=== PATIENT | female | born 1985 | race Caucasian/White ===

== ENCOUNTER 2022-02-18 22:57 | Emergency (ER) | payer MEDICAID, SELFPAY ==
[2022-02-18 23:07] VITALS: BP 115/72; PULSE 83; RESP 16; TEMP 36.6; O2SAT 95; BMI 25.6
--- NOTE | 2022-02-18 23:27 | ED.GENADULT ---
HPI - General Adult General Chief complaint: Bug Bite Stated complaint: Right Hand swollen after an insect sting Time Seen by Provider: 02/18/22 23:16 History of Present Illness HPI narrative: This 37-year-old female comes in reporting an insect bite to her right hand that occurred an hour or 2 prior to arrival. She thinks that she was bit 3 times in her right hand but does not know exactly where these bites occurred. She does think that a bite happened by an insect of some sort in the distal portion of her right ring finger. She took 100 mg of Benadryl on a 1000 mg of Tylenol prior to arrival. She comes in here because she continues to have some pain. She does not report any fevers. Related Data Home Medications Medication Instructions Recorded Confirmed lamotrigine 100 mg tablet 100 mg PO BID 02/18/22 02/18/22 prazosin 2 mg capsule 2 mg PO HS 02/18/22 02/18/22 prazosin 5 mg capsule 5 mg PO HS 02/18/22 02/18/22 quetiapine 300 mg tablet,extended 300 mg PO DAILY 02/18/22 02/18/22 release 24 hr Allergies Allergy/AdvReac Type Severity Reaction Status Date / Time ketorolac [From Toradol] Allergy Intermediate Hives Verified 02/18/22 23:06 Review of Systems Status of ROS: Reports: 10 or more systems reviewed and unremarkable except as noted in History and below Narrative: Constitutional: No fevers, no weight gain or loss. Eyes: No discharge. No vision changes. HENT: No congestion, no sore throat, no ear pain. Cardiovascular: No chest pain, no palpitations. Respiratory: No shortness of breath, no wheezes, no cough. Gastrointestinal: No abdominal pain, no vomiting, no diarrhea. Genitourinary: No dysuria, no hematuria. Musculoskeletal: Normal range of motion. Skin: No rashes, no pruritis. Insect bites on the right hand as described above. Neurological: No dizziness, weakness, sensory change, speech change. Endo/Heme/Allergies: No bruising or bleeding. No polydipsia. Pysch: no suicidality, no anxiety, no insomnia. All other systems reviewed and are negative. PFSH PFSH Social History Smoking Status: Current every day smoker Do you use any of these nicotine containing products: None Second hand tobacco smoke exposure: No How often do you have a drink containing alcohol: never How often do you have six or more drinks on one occasion: Never AUDIT-C Alcohol total score: 0 Non-prescribed substance use: denies use service: No Exam Narrative: Exam Narrative: Constitutional: Well-developed, well-nourished, no acute distress. HEENT: Normocephalic, atraumatic. Neck: Normal range of motion. Nontender. Supple. Heart: Intact distal pulses. Lungs: No chest discomfort. No wheezes, rhonchi, or rales. Abdomen: Nontender. Back: Normal range of motion. Extremities: Normal range of motion. No injury. The right hand appears normal without any sign of reaction to an insect bite. There is no compromise of the skin and no erythema. Skin: Intact. No rash. Warm. No erythema or pallor. Neurologic: No altered sensation. No weakness. Alert and oriented. Psychiatric: No suicidality. No anxiety or depression. No insomnia. Nursing notes and vitals signs are reviewed. Const: Vital Signs, click to edit/add: Vital Signs - 24 hr 02/18/22 23:07 Temperature 97.8 F Pulse Rate [Pulse Oximeter] 83 Respiratory Rate 16 Blood Pressure [Le ft Upper Arm] 115/72 Pulse Oximetry 95 Oxygen Delivery Me thod Room Air Course Vital Signs Vital signs: Initial Vital Signs Temperature 97.8 F 02/18/22 23:07 Temperature Source Temporal Artery Scan 02/18/22 23:07 Pulse Rate 83 02/18/22 23:07 Pulse Rhythm 02/18/22 23:07 Respiratory Rate 16 02/18/22 23:07 Blood Pressure 115/72 02/18/22 23:07 Blood Pressure Mean 86 02/18/22 23:07 Blood Pressure Position Sitting 02/18/22 23:07 Pulse Oximetry 95 02/18/22 23:07 Oxygen Delivery Method 02/18/22 23:07 Vital Signs Temperature 97.8 F 02/18/22 23:07 Pulse Rate 83 02/18/22 23:07 Respiratory Rate 16 02/18/22 23:07 Blood Pressure 115/72 02/18/22 23:07 Pulse Oximetry 95 02/18/22 23:07 Oxygen Delivery Method 02/18/22 23:07 Temperature 97.8 F 02/18/22 23:07 Pulse Rate 83 08/03/22 23:07 Respiratory Rate 16 02/18/22 23:07 Blood Pressure 115/72 02/18/22 23:07 Pulse Oximetry 95 02/18/22 23:07 Oxygen Delivery Method 02/18/22 23:07 Medical Decision Making MDM Narrative Medical decision making narrative: This patient comes in because of insect bite to the right hand. Her exam is completely normal. She is not showing any sign of infection or anaphylaxis. I gave reassurance is to her in this regard. She can continue to use [id number]-haygtcn medicines as needed and directed. I advised her regarding signs or symptoms that would indicate a need for return and re-evaluation. She did receive an oral dose of dexamethasone 10 mg. Discharge Plan Discharge Clinical Impression: Insect bite Patient Disposition: Home, Self-Care Condition: Stable Additional Instructions: Use [id number]-[id number] medicines as needed and directed. Follow up with MD or return if worsening symptoms occur. Prescriptions: No Action prazosin 5 mg capsule 5 mg PO HS Label Comments: TAKE ONE CAPSULE BY MOUTH AT BEDTIME lamotrigine 100 mg tablet 100 mg PO BID Label Comments: TAKE ONE TABLET BY MOUTH TWICE A DAY prazosin 2 mg capsule 2 mg PO HS Label Comments: TAKE ONE CAPSULE BY MOUTH AT BEDTIME quetiapine 300 mg tablet extended release 24 hr 300 mg PO DAILY Label Comments: TAKE ONE TABLET BY MOUTH AT BEDTIME Stand Alone Forms: Gamador Info Instructions
[2022-02-18] MEDS: dexAMETHasone 4 MG/ML VIAL 10 MG IV (23:33)
== END 2022-02-18 23:40 | disposition home or self-care (01) ==
LOC: ED 23:35
PROVIDERS: Emergency Provider Emergency Medicine Emergency Medical Services
DX: S60.561A Insect bite (nonvenomous) of right hand, initial encounter (principal)
CPT/HCPCS: 99282; 99283; J1100

== ENCOUNTER 2022-04-08 09:38 | Outpatient (CLI) | payer MEDICAID, SELFPAY ==
[2022-04-08 13:30] LABS: Chloride* 105 mmol/L (96-114)
[2022-04-08 13:31] LABS: Albumin* 4.9 g/dL (3.3-5.0); Potassium* 4.1 mmol/L (3.6-5.1)
[2022-04-08 13:33] LABS: Carbon Dioxide* 23 mmol/L (20-32); Cholesterol* 212 mg/dL (90-199); Creatinine* 0.7 mg/dL (0.5-1.5); Estimated Glomerular Filt Rate 115 ml/min; Total Protein* 7.7 g/dL (6.0-8.3)
[2022-04-08 13:34] LABS: Alanine Aminotransferase* 19 U/L (4-35); Alkaline Phosphatase* 92 U/L (40-150); Aspartate Amino Transferase* 23 U/L (12-35); Bilirubin Total* 0.6 mg/dL (0.1-1.5); Blood Urea Nitrogen* 12 mg/dL (5-24); Calcium* 9.8 mg/dL (8.4-10.6); Glucose* 100 mg/dL (60-115); Triglycerides* 154 mg/dL (40-149)
[2022-04-08 13:35] LABS: HDL Cholesterol* 36 mg/dL (>=50); LDL Cholesterol Calculated 145 mg/dL (<100)
[2022-04-08 13:53] LABS: Sodium* 139 mmol/L (135-149)
[2022-04-08 14:39] LABS: Vitamin D 25 Hydroxy* 24 ng/mL (30-80)
== END 2022-04-08 09:39 | disposition home or self-care (01) ==
PROVIDERS: Visit Provider Nurse Practitioner Family
DX: Z79.899 Other long term (current) drug therapy (principal)
CPT/HCPCS: 80053; 80061; 82306; 84443

== ENCOUNTER 2023-04-07 09:21 | Outpatient (CLI) | payer MEDICAID, SELFPAY | END 2023-04-07 09:22 | disposition home or self-care (01) | LOC: NFLDREF 04-09 11:52 | PROVIDERS: Visit Provider Nurse Practitioner Family | DX: E78.5 Hyperlipidemia, unspecified (principal); R79.89 Other specified abnormal findings of blood chemistry; F31.9 Bipolar disorder, unspecified; F41.9 Anxiety disorder, unspecified; F51.5 Nightmare disorder; F60.3 Borderline personality disorder; Z79.899 Other long term (current) drug therapy | CPT/HCPCS: 80053; 80061; 82306; 84443 ==

== ENCOUNTER 2023-07-26 09:26 | Outpatient (CLI) | payer MEDICAID, SELFPAY | END 2023-07-26 09:27 | disposition home or self-care (01) | LOC: FBOREF 09:27 | PROVIDERS: Visit Provider Family Medicine | DX: E55.9 Vitamin D deficiency, unspecified (principal); Z79.899 Other long term (current) drug therapy | CPT/HCPCS: 82306 ==

== ENCOUNTER 2024-09-06 22:33 | Emergency (ER) | payer OTHER, SELFPAY ==
--- OUTSIDE RECORDS SUMMARY | 2024-09-06 22:35 | XMS_ITS | Clinical Summary ---
Author Organization [facility] Address [address] [place] [id number] Care Team Providers Care Fighting Vehicle Systems Maintainer Name Role Phone Pcp, No Primary Care Provider Unavailabl e Allergies Active Allergy Reactions Criticality Noted Date Comments Ketorolac Muscle Weakness 09/13/2013 Medications budesonide-formot jaci (SYMBICORT) 80-4.5 mcg/actuation (80-4.5 mcg each actuation) inhalerIndication s:Moderate persistent asthma without complication Inhale 2 Puffs by mouth 2 times daily. 1 Inhaler 11 5 Active albuterol HFA (ProAir HFA) 90 mcg/actuation inhalerIndication s:Cough, unspecified type Inhale 2 Puffs by mouth 4 times daily if needed for Shortness Of Breath. 1 Each 3 Active Active Problems Problem Noted Date Diagnosed Date Moderate persistent asthma without complication 04/02/2015 HSIL on Pap smear of cervix 12/17/2013 Overview (01/08/2014): colp advised Anorexia nervosa, restricting type 09/13/2013 Major depression, recurrent 02/09/2011 Injury, other and unspecified, knee, leg, ankle, and foot 04/04/2007 Headache(784.0) 11/10/2006 Mild dysplasia of cervix 11/10/2006 History of tear of ACL (anterior cruciate ligame nt) Resolved Problems Problem Noted Date Diagnosed Date Resolved Date Supervision of other normal 05/30/2010 02/09/2011 Supervision of other normal 05/30/2010 05/30/2010 Immunizations Name Administration Dates Next Due Human Papilloma Virus Vaccine 04/01/2012, 011 Tdap 01/09/2011 Family History Medical History Relation Name Comments Psychiatric illness Brother Cancer-colon Maternal Grandfather Diabetes Maternal Grandfather Heart Disease Maternal Grandfather Diabetes Maternal Grandmother Heart Disease Maternal Grandmother Cancer Mother uterine Diabetes Paternal Grandfather Heart Disease Paternal Grandfather Hypertension Paternal Grandfather Diabetes Paternal Grandmother Heart Disease Paternal Grandmother Psychiatric illness Sister Relation Name Status Comments Brother Maternal Grandfather Maternal Grandmother Mother Paternal Grandfather Paternal Grandmother Sister Social History Tobacco Use Types Packs/Day Years Used Date Smoking Tobacco: Every Day Cigarettes 0.5 5 Smokeless Tobacco: Never Tobacco Cessation:Counseling Given: Yes Comments:Around who smokes outside Alcohol Use Standard Drinks/Week Comments No 0 (1 standard drink = 0.6 oz pur e alcohol) Interpersonal Safety Answer Date Record ed Are you being hit, kicked, p ushed or yelled at (see row info)? No 09/03/2023 Interpersonal Safety Abuse 12 - 18 Not on file 09/03/2023 Interpersonal Safety Ambulatory Vulnerability No t on file 09/03/2023 Comments No Sex and Gender Information Value Date Recorded Sex Assigned at Not on file Legal Sex Female 5:25 AM CLIENT ACCOUNT MANAGER Gender Identity Not on file Sexual Orientation Not on file Obstetrics History Para Term AB IAB SAB Ectopic Multiple Livin g Live Births 3 2 1 1 0 0 0 0 0 2 Date Outcome GA Total Labor Labor/2nd/3rd Weight Sex Type Anes PTL Lenore A1 A5 Name Clin Comments:System Genera omar. Please review and update details. Term Last Filed Vital Signs Vital Sign Reading Time Taken Comments Blood Pressure 111/68 09/03/2023 10:40 PM CLIENT ACCOUNT MANAGER Pulse 88 09/03/2023 11:45 PM CLIENT ACCOUNT MANAGER Temperature 36.6 C (97.8 F) 09/03/2023 10:40 PM CLIENT ACCOUNT MANAGER Respiratory Rate 16 09/03/2023 11:45 PM CLIENT ACCOUNT MANAGER Oxygen Saturation 99% 09/03/2023 11:45 PM CLIENT ACCOUNT MANAGER Inhaled Oxygen Concentration - - Weight 59 kg (130 lb) 09/03/2023 10:40 PM CLIENT ACCOUNT MANAGER Height 157.5 cm (5' 2) 09/03/2023 10:40 PM CLIENT ACCOUNT MANAGER Body Mass Index 23.78 09/03/2023 10:40 PM CLIENT ACCOUNT MANAGER Plan of Treatment Health Maintenance Due Date Last Done Comments Depression screening for age 12+ 1998 BMI (ht and wt on same day) for age 18+ 01/07/2004 Hepatitis C screening for ag e 18-79 01/07/2004 Pneumococcal series for age 6-49 (1 of 2 - PCV) 2005 Pap test for age 21-65 12/27/2020 0, 06/28/2020, 09/28/2014, Additional history exists Tetanus booster 01/09/2021 01/09/2011 COVID-19 vaccine series ( season) 2024 09/11/2020, 08/14/2020 Influenza for age 9-49 03/19/2024 Tdap Completed 01/09/2011 HIV for age 15-65 Completed 04/10/2020, 05/13/2010 Procedures Procedure Name Priority Date/Time Associated Diagnosis Comments CERTIFIED WELDER THIN PREP PAP SCREEN IMAGED Routine 06/28/2020 9:00 AM CLIENT ACCOUNT MANAGER ANTI HIV 1/2 Routine 04/10/2020 11:39 AM CDT from Last 3 Months or Most Recently Relevant to Health Maintenance Results * CERTIFIED WELDER THIN PREP PAP SCREEN IMAGED (06/28/2020 9:00 AM CLIENT ACCOUNT MANAGER) Case Report Gynecologic Cytology Report Case: [id number] Authorizing Provider: Anamaria Alaniz MD Collected: 06/28/2020 0900 Ordering Location: [facility] Received: 06/28/2020 1708 First Screen: Crystal Jackson Specimen: CERTIFIED WELDER ThinPrep Vial Screening, Cervical/Vaginal 07/11/2020 2:45 PM CLIENT ACCOUNT MANAGER [facility] INTERPRETATION/ RESULT NEGATIVE FOR INTRAEPITHELIAL LESION OR MALIGNANCY (NIL) (none) 07/11/2020 2:45 PM CLIENT ACCOUNT MANAGER [facility] NISM(S) Shift in riki suggestive of bacterial vaginosis 07/11/2020 2:45 PM CLIENT ACCOUNT MANAGER [facility] SPECIMEN ADEQUACY Satisfactory for evaluation Endocervical component present 07/11/2020 2:45 PM CLIENT ACCOUNT MANAGER [facility] HPV REQUEST HPV and PAP 07/11/2020 2:45 PM CLIENT ACCOUNT MANAGER [facility] Additional Information 07/11/2020 2:45 PM CLIENT ACCOUNT MANAGER [facility] Comment: Interpreted at [facility] - [address], [place] [address] Automated Review Successful 07/11/2020 2:45 PM CLIENT ACCOUNT MANAGER [facility] Comment:Specimen processed s uccessfully by automated coach device, ThinPrep Imaging System, [employer] ANCILLARY TESTING CERTIFIED WELDER HPV Ordered, Please see separate report 07/11/2020 2:45 PM CLIENT ACCOUNT MANAGER [facility] Note The pap test is a screening technique, not a diagnostic procedure. It is used primarily to screen for squamous cancers and precursor lesions. Published studies have shown that it is subject to both false negative and false positive results. The pap test should not be used as the sole means to diagnose or exclude pre-malignant and malignant lesions. 07/11/2020 2:45 PM CLIENT ACCOUNT MANAGER [facility] Other (Cervical/Vagina l) 06/28/2020 9:00 AM CLIENT ACCOUNT MANAGER 06/28/2020 5:03 PM CLIENT ACCOUNT MANAGER us Anamaria Alaniz MD PATHOLOGY/CYTOLOGY Final Result [facility] [address] [place] [address], [place] * ANTI HIV 1/2 (04/10/2020 11:39 AM CDT) HIV-1/HIV-2 ANTIBODY Non-Reacti ve Non-Reacti ve 04/11/2020 4:28 PM CDT [facility] Comment:HIV-1 p24 and HIV-1/ HIV-2 Ab not detected. Blood BLOOD SPECIMEN / Unknown 04/10/2020 11:39 AM CDT 04/11/2020 9:43 AM CDT Evy Mcgraw NP SEND OUTS Final Result [facility] [address] [place] [address], from Last 3 Months or Most Recently Relevant to Health Maintenance Insurance [address] [id number] [employer] [id number] [place] [place] [address] [id number] [employer]RE[address] [id number] [employer] [address] [id number] [employer] [address] [id number] [address] [id number] [employer] [id number] [id number] [place] [address] Care Teams Fighting Vehicle Systems Maintainer Relationship Specialty Start Date End Date Pcp, No . PCP - General 05/07/15
--- OUTSIDE RECORDS SUMMARY | 2024-09-06 22:35 | XMS_ITS | Clinical Summary ---
Author Organization [facility] er Address [address] [place] [address] Care Team Providers Care Beverage Host Name Role Phone None, Pcp Primary Care Provider Unavailabl e Encounters Date Type Department Care Team Description 09/06/2024 11:40 AM COKE CRUSHER OPERATOR Lab [facility] [address] [place] [address] from Last 3 Months Social History Tobacco Use Types Packs/Day Years Used Date Smoking Tobacco: Never Assessed Comments Unknown Sex and Gender Information Value Date Recorded Sex Assigned at Not on file Legal Sex Female 10:52 AM COKE CRUSHER OPERATOR Gender Identity Not on file Sexual Orientation Not on file Plan of Treatment Health Maintenance Due Date Last Done Comments Pneumococcal Vaccine: Pediatrics (0 to 5 Years) and At-Risk Patients (6 to 49 Years) (1 of 2 - PCV) 2005 Pap Smear 06/28/2023 06/28/2020 COVID-19 Vaccine (3 - 2023-2 5 season) 2024 09/11/2020, 08/14/2020 Influenza Vaccine (#1) 2024 DTaP,Tdap,and Td Vaccines (3 - Td or Tdap) 03/09/2033 03/09/2023, 01/09/2011 HPV Vaccines Aged Out 04/01/2012, 02/05/2011, 02/05/2011 No longer eligible based on patient's age to complete this topic Care Teams Beverage Host Relationship Specialty Start Date End Date None, Pcp [address] [place] [address] PCP - General Chief Maintenance Supervisor 09/06/24
--- OUTSIDE RECORDS SUMMARY | 2024-09-06 22:35 | XMS_ITS | Encounter Summary ---
Author Organization [facility] er Address [address] [place] [address] Care Team Providers Care Transfer Professor Name Role Phone None, Pcp Primary Care Provider Unavailabl e Encounter Details Date Type Department Care Team (Late st Contact Info) Description 09/06/2024 11:40 AM FINAL ASSEMBLY AND PACKING SUPERVISOR Lab [facility] [address] [facility] [address] [place] [address] Social History Tobacco Use Types Packs/Day Years Used Date Smoking Tobacco: Never Assessed Comments Unknown Sex and Gender Information Value Date Recorded Sex Assigned at Not on file Legal Sex Female 10:52 AM FINAL ASSEMBLY AND PACKING SUPERVISOR Gender Identity Not on file Sexual Orientation Not on file documented as of this encounter Plan of Treatment Not on file documented as of this encounter Visit Diagnoses Not on filedocumented in this encounter Care Teams Transfer Professor Relationship Specialty Start Date End Date None, Pcp [address] [place] [address] PCP - General Batch Mixing Truck Driver 09/06/24 documented as of this encounter
[2024-09-06 22:38] VITALS: BP 121/69; PULSE 85; RESP 20; TEMP 36.7; O2SAT 99; BMI 21.9
--- NOTE | 2024-09-06 22:44 | ED_ITS ---
HPI - General Adult General Chief complaint: Extremity Pain/Injury, Lower Stated complaint: possible broken L foot Time Seen by Provider: 09/06/24 22:44 History of Present Illness HPI narrative: CC: Left Ankle /Foot Pain pt. rolled her ankle around 2300 09/05. able to bear some weight. [facility] it[facility]. 39-year-old woman presenting to the emergency department following an injury to her right foot/ankle. Describes an inversion injury yesterday. Has had injuries to the right ankle but not to the left before. Has been able to bear little bit of weight but hurts a great deal. No other injuries are noted. Related Data Previous Rx's ?Medication ?Instructions ?Recorded cholecalciferol (vitamin D3) 1,250 1,250 mcg PO DIRECTED #5 caps 05/24/23 mcg (50,000 unit) capsule albuterol sulfate 90 mcg/actuation 2 puff inhalation Q4-6H PRN 01/28/24 aerosol inhaler shortness of breath or wheezing #8.5 grams fluticasone 250 mcg-salmeterol 50 1 inh inhalation BID #60 ea 05/24/24 mcg/dose blistr powdr for inhalation (Advair Diskus) escitalopram oxalate 20 mg tablet 20 mg PO QDAY #90 tabs 08/15/24 lamotrigine 150 mg tablet 150 mg PO BID #180 tabs 08/15/24 prazosin 2 mg capsule 6 mg (3 x 2 mg) PO QPM for 08/15/24 nightmares #270 caps quetiapine 200 mg tablet 200 mg PO QHS #90 tabs 08/15/24 Allergies Allergy/AdvReac Type Severity Reaction Status Date / Time ketorolac (From Toradol) Allergy Intermediate Hives Verified 09/06/24 22:40 Review of Systems Status of ROS: Reports: 6 or more systems reviewed and unremarkable except as noted in History and below [facility] Medical History Major depression, recurrent ?F33.9 - Major depressive disorder, recurrent, unspecified (ICD-10) Low vitamin D level ?R79.89 - Other specified abnormal findings of blood chemistry (ICD-10) Moderate anxiety ?F41.9 - Anxiety disorder, unspecified (ICD-10) Borderline personality disorder ?F60.3 - Borderline personality disorder (ICD-10) Nicotine use ?Z72.0 - Tobacco use (ICD-10) Abstinent from drug misuse ?F19.939 - Other psychoactive substance use, unspecified with withdrawal, unspecified (ICD-10) Nightmares ?F51.5 - Nightmare disorder (ICD-10) Dyslipidemia ?E78.5 - Hyperlipidemia, unspecified (ICD-10) Bipolar disorder ?F31.9 - Bipolar disorder, unspecified (ICD-10) Social History Narrative: Nicotine dependence Smoking Status: Current every day smoker Do you use any of these nicotine containing products: None Second hand tobacco smoke exposure: Yes How often do you have a drink containing alcohol: never How often do you have six or more drinks on one occasion: Never AUDIT-C Alcohol total score: 0 Non-prescribed substance use: denies use service: No Exam Narrative: Exam Narrative: Pleasant. NAD. Here with older daughter think. Breathing easily. Moving all extremities without difficulty other than the left leg which is sockless and appropriately elevated in exam chair. Examination of this left foot and ankle appears to show some mild swelling lateral and proximal to the navicular bone over the dorsum of the foot. She does not have discrete tenderness to palpation over bony medial or lateral malleolus. There is a little tenderness to palpation over the anterior soft tissue to the lateral malleolus. No base of 5th metatarsal tenderness. Tenderness over the navicular and proximal and little lateral over the dorsum of the foot. No plantar bruising noted. Const: Vital Signs, click to edit/add: Vital Signs - 24 hr 09/06/24 22:38 09/06/24 23:53 Temperature 98.1 F 98.1 F Pulse Rate [Right Pulse Oximeter] 85 80 Respiratory Rate 20 20 Blood Pressure [Ri ght Upper Arm] 121/69 118/71 Pulse Oximetry 99 99 Oxygen Delivery Me thod Room Air Room Air Documenting provider has reviewed patient's vital signs: yes Course Vital Signs Vital signs: Initial Vital Signs Temperature 98.1 F 09/06/24 22:38 Temperature Source Temporal Artery Scan 09/06/24 22:38 Pulse Rate 85 09/06/24 22:38 Respiratory Rate 20 09/06/24 22:38 Blood Pressure 121/69 09/06/24 22:38 Blood Pressure Mean 86 09/06/24 22:38 Blood Pressure Position Sitting 09/06/24 22:38 Pulse Oximetry 99 09/06/24 22:38 Oxygen Delivery Method Room Air 09/06/24 22:38 Vital Signs Temperature 98.1 F 09/06/24 22:38 Pulse Rate 85 09/06/24 22:38 Respiratory Rate 20 09/06/24 22:38 Blood Pressure 121/69 09/06/24 22:38 Pulse Oximetry 99 09/06/24 22:38 Oxygen Delivery Method Room Air 09/06/24 22:38 Temperature 98.1 F 09/06/24 23:53 Pulse Rate 80 09/06/24 23:53 Respiratory Rate 20 09/06/24 23:53 Blood Pressure 118/71 09/06/24 23:53 Pulse Oximetry 99 09/06/24 23:53 Oxygen Delivery Method Room Air 09/06/24 23:53 Medications Administered Medications: Discontinued Medications Generic Name Dose Route Start Last Admin Trade Name Freq PRN Reason Stop Dose Admin Acetaminophen 1,000 mg 09/06/24 22:47 09/06/24 22:59 Acetaminophen 500 Mg Tablet PO 09/06/24 22:48 1,000 mg ONCE ONE Administration Medical Decision Making MDM Narrative Medical decision making narrative: Does not really qualify for application of [place] ankle rules. She does have tenderness in area where would have concerns of potential avulsion. Otherwise I think more likely a foot sprain. Requested ice pack and three-view foot x-ray. Ordered for acetaminophen as recently took ibuprofen. Independent review by me of three-view x-ray of the foot looks to show maintained joint spaces. I do not see any acute fracture abnormality. Radiology over-read in agreement available just prior to departure. Discussed potential need for crutches. She feels she can bear little weight. But pain has been intense and was difficult to sleep. Ibuprofen was not enough. Given some Ulisses wraps. Work note written. See patient discharge plan for further discussion I would ice your foot as discussed a couple of times daily over the next few days. Limit ambulation for the next couple of days. As discussed, would consider crutching to help in this regard but it sounds like you can and prefer to bear little weight. Elevate and apply Ulisses wrap for comfort Can take up to 800 mg of ibuprofen or up to 1000 mg of acetaminophen per dose; these can be combined. As discussed can prescribe small quantity of Percocet from [facility]. Keep in mind that each tablet contains 325 mg of acetaminophen. Follow-up if not improved in a week to 10 days. See handout on foot sprain. Medical Records Medical records reviewed: Yes I reviewed the patient's medical records Discharge Plan Discharge Clinical Impression: Foot sprain Patient Disposition: Home, Self-Care Condition: Stable Additional Instructions: I would ice your foot as discussed a couple of times daily over the next few days. Limit ambulation for the next couple of days. As discussed, would consider crutching to help in this regard but it sounds like you can and prefer to bear little weight. Elevate and apply Ulisses wrap for comfort Can take up to 800 mg of ibuprofen or up to 1000 mg of acetaminophen per dose; these can be combined. As discussed can prescribe small quantity of Percocet from [facility]. Keep in mind that each tablet contains 325 mg of acetaminophen. Follow-up if not improved in a week to 10 days. See handout on foot sprain. Prescriptions: No Action fluticasone propion-salmeterol [Advair Diskus] 250-50 mcg/dose blister with device 1 inh inhalation BID Qty: 60 5RF escitalopram oxalate 20 mg tablet 20 mg PO QDAY Qty: 90 1RF lamotrigine 150 mg tablet 150 mg PO BID Qty: 180 1RF prazosin 2 mg capsule 6 mg PO QPM Qty: 270 1RF quetiapine 200 mg tablet 200 mg PO QHS Qty: 90 1RF cholecalciferol (vitamin D3) 1,250 mcg (50,000 unit) capsule 1,250 mcg PO DIRECTED Qty: 5 0RF Rx Instructions: take 1 c monthly x 5 months for low vitamin D level albuterol sulfate 90 mcg/actuation HFA aerosol inhaler 2 puff inhalation Q4-6H PRN (Reason: shortness of breath or wheezing) Qty: 8.5 2RF Follow Up/Referrals: Raad Jarrett MD [Primary Care Provider] - Stand Alone Forms: amiando Info Instructions
--- NOTE | 2024-09-06 22:47 | CRLHL7_ITS ---
For Patients: As a result of the Century Cures Act, medical imaging exams and procedure reports are released immediately into your electronic medical record. You may view this report before your referring provider. If you have questions, please contact your health care provider. INDICATION: Navicular area foot pain and swelling after inversion injury, injury- yesterday TECHNIQUE: Foot radiograph 3 views left COMPARISON: None FINDINGS: Bone: No acute fractures or aggressive bone lesions are identified. Joint: The visualized hindfoot, midfoot, and forefoot joints are unremarkable in appearance. No significant ankle effusion is seen. Soft tissue: Unremarkable. No radiopaque foreign bodies are seen. IMPRESSION: 1. No acute osseous injuries or abnormalities are noted. Dictated by: Arthur Gibson MD @ 09/06/2024 23:02:52 (Electronically Signed)
[2024-09-06] MEDS: ACETAMINOPHEN 500 MG TABLET 1000 MG PO (22:59)
--- OUTSIDE RECORDS SUMMARY | 2024-09-06 23:25 | XMS_ITS | Clinical Summary ---
Author Organization [facility] er Address [address] [place] [address] Care Team Providers Care Stamp Press Operator Name Role Phone None, Pcp Primary Care Provider Unavailabl e Encounters Date Type Department Care Team Description 09/06/2024 11:40 AM DEODORIZER OPERATOR Lab [facility] [address] [place] [address] from Last 3 Months Social History Tobacco Use Types Packs/Day Years Used Date Smoking Tobacco: Never Assessed Comments Unknown Sex and Gender Information Value Date Recorded Sex Assigned at Not on file Legal Sex Female 10:52 AM DEODORIZER OPERATOR Gender Identity Not on file Sexual [...] age to complete this topic Care Teams Stamp Press Operator Relationship Specialty Start Date End Date None, Pcp [address] [facility] [place] [address] PCP - General Plc Programmer 09/06/24
--- OUTSIDE RECORDS SUMMARY | 2024-09-06 23:25 | XMS_ITS | Encounter Summary ---
Author Organization [facility] er Address [address] [place] [address] Care Team Providers Care Sewing Machine Repairer Helper Name Role Phone None, Pcp Primary Care Provider Unavailabl e Encounter Details Date Type Department Care Team (Late st Contact Info) Description 09/06/2024 11:40 AM TUBERCULOSIS SPECIALIST Lab [facility] [address] [facility] [address] [place] [address] Social History Tobacco Use Types Packs/Day Years Used Date Smoking Tobacco: Never Assessed Comments Unknown Sex and Gender Information Value Date Recorded Sex Assigned at Not on file Legal Sex Female 10:52 AM TUBERCULOSIS SPECIALIST Gender Identity Not on file Sexual Orientation Not on file documented as of this encounter Plan of Treatment Not on file documented as of this encounter Visit Diagnoses Not on filedocumented in this encounter Care Teams Sewing Machine Repairer Helper Relationship Specialty Start Date End Date None, Pcp [address] [facility] [place] [address] PCP - General Inside Sales Coordinator 09/06/24 documented as of this encounter
--- OUTSIDE RECORDS SUMMARY | 2024-09-06 23:25 | XMS_ITS | Clinical Summary ---
Author Organization [employer] [facility] Address [address] [place] [address] Care Team Providers Care Student Finance Specialist Name Role Phone Pcp, No Primary Care [...] on file Legal Sex Female 5:25 AM HAND RIGGER Gender Identity Not on file Sexual Orientation [...] Comments Blood Pressure 111/68 09/03/2023 10:40 PM HAND RIGGER Pulse 88 09/03/2023 11:45 PM HAND RIGGER Temperature 36.6 C (97.8 F) 09/03/2023 10:40 PM HAND RIGGER Respiratory Rate 16 09/03/2023 11:45 PM HAND RIGGER Oxygen Saturation 99% 09/03/2023 11:45 PM HAND RIGGER Inhaled Oxygen Concentration - - Weight 59 kg (130 lb) 09/03/2023 10:40 PM HAND RIGGER Height 157.5 cm (5' 2) 09/03/2023 10:40 PM HAND RIGGER Body Mass Index 23.78 09/03/2023 10:40 PM HAND RIGGER Plan of Treatment Health Maintenance Due Date [...] Procedure Name Priority Date/Time Associated Diagnosis Comments RECORD TESTER THIN PREP PAP SCREEN IMAGED Routine 06/28/2020 9:00 AM HAND RIGGER ANTI HIV 1/2 Routine 04/10/2020 11:39 AM CDT from Last 3 Months or Most Recently Relevant to Health Maintenance Results * RECORD TESTER THIN PREP PAP SCREEN IMAGED (06/28/2020 9:00 AM HAND RIGGER) Case Report Gynecologic Cytology Report Case: [id number] Authorizing Provider: Anamaria Alaniz MD Collected: 06/28/2020 0900 Ordering Location: [facility] Received: 06/28/2020 1708 First Screen: Crystal aJckson Specimen: RECORD TESTER ThinPrep Vial Screening, Cervical/Vaginal 07/11/2020 2:45 PM HAND RIGGER [facility]AT[facility]-C ENTRAL LABORATORY INTERPRETATION/ RESULT NEGATIVE FOR INTRAEPITHELIAL LESION OR MALIGNANCY (NIL) (none) 07/11/2020 2:45 PM HAND RIGGER [facility]-C ENTRAL LABORATORY NISM(S) Shift in riki suggestive of bacterial vaginosis 07/11/2020 2:45 PM HAND RIGGER [facility] LAB[facility] SPECIMEN ADEQUACY Satisfactory for evaluation Endocervical component present 07/11/2020 2:45 PM HAND RIGGER [facility] HPV REQUEST HPV and PAP 07/11/2020 2:45 PM HAND RIGGER [facility] Additional Information 07/11/2020 2:45 PM HAND RIGGER [facility] Comment: Interpreted at [facility] - [address], [place] [address] Automated Review Successful 07/11/2020 2:45 PM HAND RIGGER [facility] Comment:Specimen processed s uccessfully by automated crna device, ThinPrep Imaging System, [employer] ANCILLARY TESTING RECORD TESTER HPV Ordered, Please see separate report 07/11/2020 2:45 PM HAND RIGGER [facility] Note The pap test is a screening technique, not a diagnostic procedure. It is used primarily to screen for squamous cancers and precursor lesions. Published studies have shown that it is subject to both false negative and false positive results. The pap test should not be used as the sole means to diagnose or exclude pre-malignant and malignant lesions. 07/11/2020 2:45 PM HAND RIGGER [facility] Other (Cervical/Vagina l) 06/28/2020 9:00 AM HAND RIGGER 06/28/2020 5:03 PM HAND RIGGER us Anamaria Alaniz MD PATHOLOGY/CYTOLOGY Final Result [facility] [address] [place] [address], [place] * ANTI HIV 1/2 (04/10/2020 11:39 AM CDT) HIV-1/HIV-2 ANTIBODY Non-Reacti ve Non-Reacti ve 04/11/2020 4:28 PM CDT [facility] Comment:HIV-1 p24 and HIV-1/ HIV-2 Ab not detected. Blood BLOOD SPECIMEN / Unknown 04/10/2020 11:39 AM CDT 04/11/2020 9:43 AM CDT Evy Mcgraw NP SEND OUTS Final Result [facility]-CENTRAL LABORATORY [address] [place] [address], from Last 3 Months or Most Recently Relevant to Health Maintenance Insurance [address] [id number] [employer] [id number] [employer] [place] [address] [id number] [employer] [place] [id number] [employer] [address] [id number] [employer] [place] [id number] [address] [id number] [employer] [id number] [place] [address] Care Teams Student Finance Specialist Relationship Specialty Start Date End Date Pcp, No . PCP - General 05/07/15
[2024-09-06 23:53] VITALS: BP 118/71; PULSE 80; RESP 20; TEMP 36.7; O2SAT 99
== END 2024-09-06 23:58 | disposition home or self-care (01) ==
PROVIDERS: Emergency Provider Family Medicine; PCP Family Medicine
DX: S93.602A Unspecified sprain of left foot, initial encounter (principal); X50.1XXA Overexertion from prolonged static or awkward postures, initial encounter
CPT/HCPCS: 73630; 99284; A9270

== ENCOUNTER 2025-01-26 21:42 | Emergency (ER) | payer MEDICAID, SELFPAY ==
--- OUTSIDE RECORDS SUMMARY | 2025-01-26 21:44 | XMS_ITS | Clinical Summary ---
Author Organization [facility] er Address [address] [place] [address] Care Team Providers Care Carton Forming Machine Tender Name Role Phone None, Pcp Primary Care Provider Unavailabl e Social History Tobacco Use Types Packs/Day Years Used Date Smoking Tobacco: Never Assessed Comments Unknown Sex and Gender Information Value Date Recorded Sex Assigned at Not on file Legal Sex Female 10:52 AM RESEARCH TEST ENGINE EVALUATOR Gender Identity Not on file Sexual Orientation Not on file Plan of Treatment Health Maintenance Due Date Last Done Comments Pneumococcal Vaccine: Pediatrics (0 to 5 Years) and At-Risk Patients (6 to 49 Years) (1 of 2 - PCV) 2005 Pap Smear 06/28/2023 06/28/2020 COVID-19 Vaccine (3 - 2023-2 5 season) 2024 09/11/2020, 08/14/2020 Influenza Vaccine (#1) 2025 DTaP,Tdap,and Td Vaccines (3 - Td or Tdap) 03/09/2033 03/09/2023, 01/09/2011 HPV Vaccines Aged Out 04/01/2012, 02/05/2011, 02/05/2011 No longer eligible based on patient's age to complete this topic Care Teams Carton Forming Machine Tender Relationship Specialty Start Date End Date None, Pcp [address] [place] [address] PCP - General [employer] Science Teacher 09/06/24
--- OUTSIDE RECORDS SUMMARY | 2025-01-26 21:45 | XMS_ITS | Clinical Summary ---
Author Organization [employer] [facility] Address [address] [place] [address] Care Team Providers Care Easement Worker Name Role Phone Pcp, No Primary Care Provider Unavailabl e Allergies Active Allergy Reactions Criticality Noted Date Comments Ketorolac Muscle Weakness 09/13/2013 Medications budesonide-formot jaci (SYMBICORT) 80-4.5 mcg/actuation (80-4.5 mcg each actuation) inhalerIndication s:Moderate persistent asthma without complication (HC) Inhale 2 Puffs by mouth 2 times [...] Supervision of other normal 05/30/2010 05/30/2010 Immunizations Immunization Administration Dates Next Due Human Papilloma Virus [...] on file Legal Sex Female 5:25 AM BEEHIVE KILN CHARCOAL BURNER Gender Identity Not on file Sexual Orientation [...] Comments Blood Pressure 111/68 09/03/2023 10:40 PM BEEHIVE KILN CHARCOAL BURNER Pulse 88 09/03/2023 11:45 PM BEEHIVE KILN CHARCOAL BURNER Temperature 36.6 C (97.8 F) 09/03/2023 10:40 PM BEEHIVE KILN CHARCOAL BURNER Respiratory Rate 16 09/03/2023 11:45 PM BEEHIVE KILN CHARCOAL BURNER Oxygen Saturation 99% 09/03/2023 11:45 PM BEEHIVE KILN CHARCOAL BURNER Inhaled Oxygen Concentration - - Weight 59 kg (130 lb) 09/03/2023 10:40 PM BEEHIVE KILN CHARCOAL BURNER Height 157.5 cm (5' 2) 09/03/2023 10:40 PM BEEHIVE KILN CHARCOAL BURNER Body Mass Index 23.78 09/03/2023 10:40 PM BEEHIVE KILN CHARCOAL BURNER Plan of Treatment Health Maintenance Due Date Last Done Comments Depression screening for age 12+ 1998 BMI (ht and wt on same day) for age 18+ 01/07/2004 Hepatitis C screening for ag e 18-79 01/07/2004 Hepatitis B series for 19+ ( 1 of 3 - 19+ 3-dose series) 2005 Pneumococcal series for age 6-49 (1 of 2 - PCV) 2005 Pap test for age 21-65 12/27/2020 0, 06/28/2020, 09/28/2014, Additional history exists Tetanus booster 01/09/2021 01/09/2011 COVID-19 vaccine series ( season) 2024 09/11/2020, 08/14/2020 Influenza Vaccine (#1) 2025 HIV for age 15-65 Completed 04/10/2020, 05/13/2010 Procedures Procedure Name Priority Date/Time Associated Diagnosis Comments CLASSIFIED ADVERTISING SUPERVISOR THIN PREP PAP SCREEN IMAGED Routine 06/28/2020 9:00 AM BEEHIVE KILN CHARCOAL BURNER ANTI HIV 1/2 Routine 04/10/2020 11:39 AM CDT from Last 3 Months or Most Recently Relevant to Health Maintenance Results * CLASSIFIED ADVERTISING SUPERVISOR THIN PREP PAP SCREEN IMAGED (06/28/2020 9:00 AM BEEHIVE KILN CHARCOAL BURNER) Case Report Gynecologic Cytology Report Case: [id number] Authorizing Provider: Anamaria Alaniz MD Collected: 06/28/2020 0900 Ordering Location: [facility] Received: 06/28/2020 1703 First Screen: Crystal Jackson Specimen: CLASSIFIED ADVERTISING SUPERVISOR ThinPrep Vial Screening, Cervical/Vaginal 07/11/2020 2:45 PM BEEHIVE KILN CHARCOAL BURNER [facility]ORAT[facility]-C ENTRAL LABORATORY INTERPRETATION/ RESULT NEGATIVE FOR INTRAEPITHELIAL LESION OR MALIGNANCY (NIL) (none) 07/11/2020 2:45 PM BEEHIVE KILN CHARCOAL BURNER [facility]-C ENTRAL LABORATORY at 1445 BEEHIVE KILN CHARCOAL BURNER ORGANISM(S) Shift in riki suggestive of bacterial vaginosis 07/11/2020 2:45 PM BEEHIVE KILN CHARCOAL BURNER [facility]-C ENTRAL LABORATORY SPECIMEN ADEQUACY Satisfactory for evaluation Endocervical component present 07/11/2020 2:45 PM BEEHIVE KILN CHARCOAL BURNER [facility] LAB[facility] HPV REQUEST HPV and PAP 07/11/2020 2:45 PM BEEHIVE KILN CHARCOAL BURNER [facility] Additional Information 07/11/2020 2:45 PM BEEHIVE KILN CHARCOAL BURNER [facility] Comment: Interpreted at [facility] - [address], [place] [address] Automated Review Successful 07/11/2020 2:45 PM BEEHIVE KILN CHARCOAL BURNER [facility] Comment:Specimen processed s uccessfully by automated storeroom supervisor device, ThinPrep Imaging System, [employer] ANCILLARY TESTING CLASSIFIED ADVERTISING SUPERVISOR HPV Ordered, Please see separate report 07/11/2020 2:45 PM BEEHIVE KILN CHARCOAL BURNER [facility] Note [...] pre-malignant and malignant lesions. 07/11/2020 2:45 PM BEEHIVE KILN CHARCOAL BURNER [facility] Other (Cervical/Vagina l) 06/28/2020 9:00 AM BEEHIVE KILN CHARCOAL BURNER 06/28/2020 5:03 PM BEEHIVE KILN CHARCOAL BURNER Anamaria Alaniz MD PATHOLOGY/CYTOLOGY Final Result [facility] [address] [place] [address], [place] * ANTI HIV 1/2 (04/10/2020 11:39 AM CDT) HIV-1/HIV-2 ANTIBODY Non-Reacti ve Non-Reacti ve 04/11/2020 4:28 PM CDT [facility] Comment:HIV-1 p24 and HIV-1/ HIV-2 Ab not detected. Blood BLOOD SPECIMEN / Unknown 04/10/2020 11:39 AM CDT 04/11/2020 9:43 AM CDT Evy Mcgraw NP SEND OUTS Final Result [facility]ORAT[facility]-CENTRAL LABORATORY [address] [place] [address], from Last 3 Months or Most Recently Relevant to Health Maintenance Insurance [address] [id number] [employer] [id number] [facility] [address] [id number] [employer] [id number] [employer] [address] [id number] [employer] [id number] [address] [id number] [employer] [id number] [id number] [place] [address] Care Teams Easement Worker Relationship Specialty Start Date End Date Pcp, No . PCP - General 05/07/15
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
--- NOTE | 2025-01-26 21:49 | CRLHL7_ITS ---
For Patients: As a result of the Century Cures Act, medical imaging exams and procedure reports are released immediately into your electronic medical record. You may view this report before your referring provider. If you have questions, please contact your health care provider. Indication: Trauma, dropped washer/joaquin on right foot. Technique: Right foot 3 views. Comparison: None. Findings: Bones: Alignment is normal. No fractures or bone lesions. Joint spaces: Unremarkable. Soft tissues: Unremarkable. Impression: No acute fracture or dislocation. Dictated by Raad Carter MD @ 01/26/2025 11:02:52 PM (Electronically Signed)
[2025-01-26 21:54] VITALS: BP 145/85; PULSE 78; RESP 18; TEMP 36.7; O2SAT 99; BMI 28.0
[2025-01-26 22:41] VITALS: BP 132/74; PULSE 85; RESP 18; TEMP 36.7; O2SAT 99
--- NOTE | 2025-01-26 22:50 | ED_ITS ---
HPI - Extremity Injury (Lower) General Date Seen: 01/26/25 Chief Complaint: Extremity Pain/Injury, Lower Stated Complaint: R foot injury Time Seen by Provider: 01/26/25 22:07 Source: patient Mode of arrival: ambulatory Limitations: no limitations History of Present Illness HPI Narrative: Patient is a very nice 40-year-old female seen here with her daughter, after she dropped a joaquin/washing machine on her right foot, she is able to bear weight, history of foot surgery about 4 years ago and worried she might have broke her foot, is not taking any Tylenol or ibuprofen, no numbness tingling or weakness, again she is able to bear weight walk. This occurred a few hours ago. complaint: foot injury Type of Injury: blunt Place: home Severity: moderate Relieving factors: nothing Exacerbating factors: weight bearing Context: direct blow Other symptoms: none Related Data Previous Rx's ?Medication ?Instructions ?Recorded cholecalciferol (vitamin D3) 1,250 1,250 mcg PO DIR ECTED #5 caps 05/24/23 mcg (50,000 unit) capsule albuterol sulfate 90 mcg/actuation 2 puff inhalation Q 4-6H PRN 01/28/24 aerosol inhaler shortness of breath or wheez ing #8.5 grams fluticasone 250 mcg-salmeterol 50 1 inh inhalation BID #60 ea 05/24/24 mcg/dose blistr powdr for inhalation (Advair Diskus) escitalopram oxalate 20 mg tablet 20 mg PO QDAY #90 ta bs 08/15/24 lamotrigine 150 mg tablet 150 mg PO BID #180 tabs 07/20 03/12 prazosin 2 mg capsule 6 mg (3 x 2 mg) PO QPM for 0 08/15/24 nightmares #270 caps quetiapine 200 mg tablet 200 mg PO QHS #90 tabs 08/15 Allergies Allergy/AdvReac Type Severity Reaction Status Date / Time ketorolac (From Toradol) Allergy Intermediate Hives Verified 01/26/25 21:56 Review of Systems Status of ROS: Reports: 6 or more systems reviewed and unremarkable except as noted in History and below [facility] PFS Medical History Major depression, recurrent ?F33.9 - Major depressive disorder, recurrent, unspecified (ICD-10) Low vitamin D level ?R79.89 - Other specified abnormal findings of blood chemistry (ICD-10) Moderate anxiety ?F41.9 - Anxiety disorder, unspecified (ICD-10) Borderline personality disorder ?F60.3 - Borderline personality disorder (ICD-10) Nicotine use ?Z72.0 - Tobacco use (ICD-10) Abstinent from drug misuse ?F19.939 - Other psychoactive substance use, unspecified with withdrawal, unspecified (ICD-10) Nightmares ?F51.5 - Nightmare disorder (ICD-10) Dyslipidemia ?E78.5 - Hyperlipidemia, unspecified (ICD-10) Bipolar disorder ?F31.9 - Bipolar disorder, unspecified (ICD-10) Social History Narrative: Nicotine dependence Smoking Status: Current every day smoker Do you use any of these nicotine containing products: None Second hand tobacco smoke exposure: Yes How often do you have a drink containing alcohol: never How often do you have six or more drinks on one occasion: Never AUDIT-C Alcohol total score: 0 Non-prescribed substance use: denies use service: No Exam Narrative: Exam Narrative: On examination she is in no apparent distress she is pleasant alert she is able to bear weight walk on her right foot, there is a scar between her 4th and 5th metatarsals longitudinal E, from her previous surgery I do not see any evidence of any swelling, DP and posterior tibial pulses are normal, anterior drawer test is negative neurovascular status is excellent. We did x-ray, I do not see any evidence of fracture, malalignment. Const: Vital Signs, click to edit/add: Vital Signs - 24 hr 01/26/25 21:54 01/26/25 22:41 Temperature 98.0 F 98.0 F Pulse Rate [Right Pulse Oximeter] 78 85 Respiratory Rate 18 18 Blood Pressure [Ri ght Upper Arm] 145/85 H 132/74 Pulse Oximetry 99 99 Oxygen Delivery Me thod Room Air Room Air Course Course ED Course: I think it be reasonable let her go home, of the radiology read shows a fracture I will call her, but given she is bearing full weight with no problems, little Tylenol and reassurance was given. Vital Signs Vital signs: Initial Vital Signs Temperature 98.0 F 01/26/25 21:54 Temperature Source Temporal Artery Scan 01/26/25 21:54 Pulse Rate 78 01/26/25 21:54 Respiratory Rate 18 01/26/25 21:54 Blood Pressure 145/85 H 01/26/25 21:54 Blood Pressure Mean 105 01/26/25 21:54 Blood Pressure Position Supine 01/26/25 21:54 Pulse Oximetry 99 01/26/25 21:54 Oxygen Delivery Method Room Air 01/26/25 21:54 Vital Signs Temperature 98.0 F 01/26/25 21:54 Pulse Rate 78 01/26/25 21:54 Respiratory Rate 18 01/26/25 21:54 Blood Pressure 145/85 H 01/26/25 21:54 Pulse Oximetry 99 01/26/25 21:54 Oxygen Delivery Method Room Air 01/26/25 21:54 Temperature 98.0 F 01/26/25 22:41 Pulse Rate 85 01/26/25 22:41 Respiratory Rate 18 01/26/25 22:41 Blood Pressure 132/74 01/26/25 22:41 Pulse Oximetry 99 01/26/25 22:41 Oxygen Delivery Method Room Air 01/26/25 22:41 MDM - Extremity Injury (Lower) Medical Records Attestation: I reviewed the patient's medical records. Imaging Data Foot x-ray: Attestation: I have reviewed the pertinent imaging results. My impression: No evidence of fracture Discharge Plan Discharge Clinical Impression: Contusion of foot Patient Disposition: Home w/ Parent or Adult Condition: Stable Instructions: Foot Contusion (ED) Additional Instructions: Home rest use of ice, Tylenol ibuprofen no evidence of fracture on x-ray, we will call you if the radiologist shows anything. Activity Level: Light activity Discharge Diet: Regular Prescriptions: No Action fluticasone propion-salmeterol [Advair Diskus] 250-50 mcg/dose blister with device 1 inh inhalation BID Qty: 60 5RF escitalopram oxalate 20 mg tablet 20 mg PO QDAY Qty: 90 1RF lamotrigine 150 mg tablet 150 mg PO BID Qty: 180 1RF prazosin 2 mg capsule 6 mg PO QPM Qty: 270 1RF quetiapine 200 mg tablet 200 mg PO QHS Qty: 90 1RF cholecalciferol (vitamin D3) 1,250 mcg (50,000 unit) capsule 1,250 mcg PO DIRECTED Qty: 5 0RF Rx Instructions: take 1 c monthly x 5 months for low vitamin D level albuterol sulfate 90 mcg/actuation HFA aerosol inhaler 2 puff inhalation Q4-6H PRN (Reason: shortness of breath or wheezing) Qty: 8.5 2RF Follow Up/Referrals: Raad Jarrett MD [Primary Care Provider, Family Practice] Stand Alone Forms: [facility] Info Instructions
== END 2025-01-26 22:41 | disposition home or self-care (01) ==
PROVIDERS: Emergency Provider Family Medicine; PCP Family Medicine
DX: S90.31XA Contusion of right foot, initial encounter (principal); W22.8XXA Striking against or struck by other objects, initial encounter
CPT/HCPCS: 73630; 99283; 99284

== ENCOUNTER 2025-03-12 14:36 | Outpatient (CLI) | payer OTHER, SELFPAY | END 2025-03-12 14:37 | disposition home or self-care (01) | PROVIDERS: PCP Family Medicine; Visit Provider Family Medicine | DX: E78.5 Hyperlipidemia, unspecified (principal); F60.3 Borderline personality disorder; Z79.899 Other long term (current) drug therapy | CPT/HCPCS: 80048; 80061; 80175; 84460 ==